=== PATIENT | male | born 1990 | race Two or more races ===

== ENCOUNTER 2024-10-15 08:56 | Outpatient (CLI) | payer MEDICAID ==
[2024-10-15 09:18] LABS: Hematocrit 49.4 % (41.0-53.0); Hemoglobin 16.5 g/dL (13.5-17.5); Mean Corpuscular Hemoglobin 28.7 pg (28.0-32.0); Mean Corpuscular Volume 86.0 fL (80.0-100.0); Nucleated Red Blood Cells % 0.0 %
[2024-10-15 09:22] LABS: Urine Protein, UAD Negative (Negative)
[2024-10-15 09:50] LABS: Albumin 4.7 g/dL (3.2-4.8); Alkaline Phosphatase 89 U/L (46-116); Anion Gap 9 (5-15); BUN/Creatinine Ratio 12.1 (10.0-20.0); Bilirubin, Total 0.6 mg/dL (0.2-1.0); Blood Urea Nitrogen 12 mg/dL (9-23); Carbon Dioxide 27 mmol/L (20-31); Chloride 104 mmol/L (98-107); Glucose 105 mg/dL (74-106); Potassium 4.3 mmol/L (3.5-5.1); Sodium 140 mmol/L (136-145); Total Protein 7.5 g/dL (5.7-8.2)
[2024-10-15 09:58] LABS: Alanine Aminotransferase 58 U/L (7-40); Calcium 10.5 mg/dL (8.7-10.4); Cholesterol 201 mg/dL (< 200); HDL Cholesterol 35 mg/dL (40-59); Triglycerides 203 mg/dL (< 150)
== END 2024-10-15 17:00 | disposition home or self-care (01) ==
LOC: LAB 08:56
PROVIDERS: ATTEND Internal Medicine
DX: E78.5 Hyperlipidemia, unspecified (principal); N20.0 Calculus of kidney; Z00.01 Encounter for general adult medical examination with abnormal findings; Z98.890 Other specified postprocedural states
CPT/HCPCS: 36415; 80053; 80061; 81001; 83036; 84439; 84443; 85025; 87086